=== PATIENT | female | born 1995 | race Hispanic/Latino ===

== ENCOUNTER 2019-03-20 08:34 | Emergency (ER) | payer BC, SELFPAY ==
[2019-03-20] MEDS ORDERED: Ibuprofen 800 MG TAB ONE (09:01)
[2019-03-20] MEDS ORDERED: Dexamethasone 4 mg/ml Vial ONE (09:01)
--- NOTE | 2019-03-20 17:37 | RAD ---
CHEST TWO VIEWS: 03/20/19 The heart is normal in size and the lungs are clear. No infiltrate or effusion was seen. The trachea is midline. IMPRESSION: No acute finding. POS: HOME
== END 2019-03-20 09:28 | disposition home or self-care (01) ==
LOC: BURERS 08:34
DX: J01.80 Other acute sinusitis (principal); B96.89 Other specified bacterial agents as the cause of diseases classified elsewhere
CPT/HCPCS: 71046; J1100

== ENCOUNTER 2021-10-23 14:18 | Emergency (ER) | payer OTHER, SELFPAY ==
[2021-10-23 15:30] LABS: Clarity Cloudy (Clear)
[2021-10-23 15:31] LABS: Bilirubin Unable to Interpret (Negative); Blood, Urine Unable to Interpret (Negative); Glucose, Urine (Dipstick) Unable to Interpret mg/dL (Negative); Ketone, Urine Unable to Interpret mg/dL (Negative); Leukocyte Unable to Interpret (Negative); Nitrite Unable to Interpret (Negative); Protein, Urine (Dipstick) Unable to Interpret mg/dL (Neg-Trace); Specific Gravity, Urine 1.027 (1.002-1.036); Urobilinogen UNABLE TO INTERPRET mg/dL (Less than 2)
[2021-10-23 15:40] LABS: Bacteria/HPF 3+ HPF (None Seen); RBC/HPF 21-50 HPF (0-3); Renal Epithelial 0-3 HPF (None Seen)
[2021-10-23] MEDS ORDERED: cefTRIAXone\\ROCEPHIN 1 GM VIAL ONE (16:34)
[2021-10-23] MEDS ORDERED: Lidocaine 1% PF 5 ML VIAL ONE (16:34)
== END 2021-10-23 16:47 | disposition home or self-care (01) ==
LOC: BURERS 14:18
DX: N39.0 Urinary tract infection, site not specified (principal)
CPT/HCPCS: 81003; 81015; J0696

== ENCOUNTER 2024-05-11 16:19 | Emergency (ER) | payer OTHER ==
[2024-05-11] MEDS ORDERED: predniSONE 20 MG TAB ONE (16:38)
== END 2024-05-11 16:48 | disposition home or self-care (01) ==
LOC: BURERS 16:19
DX: J01.00 Acute maxillary sinusitis, unspecified (principal); B34.9 Viral infection, unspecified; Z87.891 Personal history of nicotine dependence
CPT/HCPCS: 99283; J7512